=== PATIENT | female | born 1950 | race Caucasian/White ===

== ENCOUNTER 2016-10-15 15:22 | Emergency (ER) | payer OTHER ==
[~2016-10-15] VITALS: Ht 162.6 cm; Wt 65.0 kg
[~2016-10-15 15:22] MED LIST: ALBU8I INH; ASPI81 PO; DAPA5TAB PO; EFFE150C PO; GLIP10TA6 OR; HYDR-3533 PO; METF500 PO; METO50TA PO; OMEGCAP2 OR; PRAV20TA67 PO; PRED10PA PO; SERO400T OR; SYNT25TA PO; ZITHTAB6 PO
[2016-10-15 17:02] VITALS: BP 186/106; PULSE 58; RESP 16; TEMP 98.2; O2SAT 98
[2016-10-15] MEDS ORDERED: cloNIDine HCL 0.1 MG TAB PO ONE (17:30)
--- NOTE | 2016-10-15 17:32 | PD ---
HPI Chief Complaint: Medical Clearance Time Seen by Provider: 17:15 Travel History International Travel<30 days: No Contact w/Intl Traveler<30days: No Traveled to known affect area: No History of Present Illness HPI 66-year-old female was brought in by EMS for evaluation. Patient was reportedly driving erratically and was stopped by police and patient was brought in for evaluation. Patient denies any headache. Patient denies any visual change. Patient denies any neck pain. Patient denies any chest pain or shortness of breath. Patient denies abdominal pain. Patient denies any focal weakness or numbness of extremity. Patient denies any alcohol or drug abuse. Patient states that she is not on any narcotic pain medication. Patient has history hypertension and diabetes and has been taking her medications as directed. Patient also has history anxiety, asthma, GERD, hyperlipidemia, depression, thyroid disease. PFSH Past Medical History Asthma: Yes Blood Disorders: No Anxiety: Yes Depression: Yes High Cholesterol: Yes Diabetes: Yes Patient Takes Glucophage: Yes Diminished Hearing: No GERD: Yes Genitourinary: Yes Hypertension: Yes Immunizations Current: Yes Thyroid Disease: Yes Tetanus Vaccination: Unknown Influenza Vaccination: Yes Menopausal: Yes Tubal Ligation: Yes Past Surgical History Appendectomy: Yes Cholecystectomy: Yes Social History Alcohol Use: No Tobacco Use: No Substance Use: No Allergies-Medications (Allergen,Severity, Reaction): Coded Allergies: Vistaril (Verified Allergy, Severe, RAPID HEART RATE, 06/10/15) Sulfa (Verified Allergy, Mild, Nausea/Vomiting, 06/10/15) Codeine (Verified Adverse Reaction, Mild, Nausea/Vomiting, 06/10/15) Reported Meds & Prescriptions Reported Meds & Active Scripts Active Reported Aspir-81 (Aspirin) 81 Mg Tabdr 81 Mg PO DAILY Seroquel (Quetiapine Fumarate) 400 Mg Tab 400 Mg PO HS Effexor XR 24 HR (Venlafaxine HCl) 150 Mg Cap 150 Mg PO DAILY Voltaren (Diclofenac Sodium) 100 Gm Gel..gram. 1 Applic TOPICAL QID PRN Farxiga (Dapagliflozin) 5 Mg Tab 5 Mg PO DAILY Metformin (Metformin HCl) 1,000 Mg Tab 1,000 Mg PO BIDPC With meals Glipizide 10 Mg Tab 10 Mg PO BIDAC Take 30 minutes before a meal Levothyroxine (Levothyroxine Sodium) 125 Mcg Tab 125 Mcg PO DAILY Metoprolol Tartrate 50 Mg Tab 50 Mg PO BID Pravastatin 20 Mg Tab 20 Mg PO DAILY Baclofen 10 Mg Tab 10 Mg PO TID PRN Meloxicam 7.5 Mg Tab 7.5 Mg PO BID Ambien (Zolpidem Tartrate) 10 Mg Tab 10 Mg PO HS Review of Systems General / Constitutional: No: Fever Eyes: No: Visual changes HENT: No: Headaches Cardiovascular: No: Chest Pain or Discomfort Respiratory: No: Shortness of Breath Gastrointestinal: No: Abdominal Pain Genitourinary: No: Dysuria Musculoskeletal: No: Pain Skin: No Rash Neurologic: No: Weakness Psychiatric: No: Depression Endocrine: No: Polydipsia Hematologic/Lymphatic: No: Easy Bruising Physical Exam Narrative GENERAL: Well-nourished, well-developed patient. SKIN: Focused skin assessment warm/dry. HEAD: Normocephalic. EYES: No scleral icterus. No injection or drainage. NECK: Supple, trachea midline. No JVD or lymphadenopathy. CARDIOVASCULAR: Regular rate and rhythm without murmurs, gallops, or rubs. GENERAL: Well-nourished, well-developed patient. SKIN: Focused skin assessment warm/dry. HEAD: Normocephalic. EYES: No scleral icterus. No injection or drainage. Pupils 3 mm equal reactive. NECK: Supple, trachea midline. No JVD or lymphadenopathy. CARDIOVASCULAR: Regular rate and rhythm without murmurs, gallops, or rubs. RESPIRATORY: Breath sounds equal bilaterally. No accessory muscle use. GASTROINTESTINAL: Abdomen soft, non-tender, nondistended. MUSCULOSKELETAL: No cyanosis, or edema. BACK: Nontender without obvious deformity. No CVA tenderness. Neurologic exam: Patient's awake and alert oriented 3. Patient moves all extremity well. No obvious focal neurological deficit. Data Data Last Documented VS Vital Signs Date Time Temp Pulse Resp B/P Pulse Ox O2 Delivery O2 Flow Rate FiO2 10/15/16 18:30 57 18 172/94 100 Room Air 10/15/16 17:02 98.2 Orders Clonidine (Catapres) (10/15/16 17:30) Electrocardiogram (10/15/16 17:24) Complete Blood Count With Diff (10/15/16 17:24) Comprehensive Metabolic Panel (10/15/16 17:24) Urinalysis - C+S If Indicated (10/15/16 17:24) Chest, Single Ap (10/15/16 17:24) Iv Access Insert/Monitor (10/15/16 17:24) Ecg Monitoring (10/15/16 17:24) Oximetry (10/15/16 17:24) Thyroid Stimulating Hormone (10/15/16 17:29) Labs Laboratory Tests Test 10/15/16 10/15/16 18:00 18:05 White Blood Count 9.9 TH/MM3 Red Blood Count 4.39 MIL/MM3 Hemoglobin 12.7 GM/DL Hematocrit 39.1 % Mean Corpuscular Volume 89.1 FL Mean Corpuscular Hemoglobin 28.8 PG Mean Corpuscular Hemoglobin 32.4 % Concent Red Cell Distribution Width 14.5 % Platelet Count 164 TH/MM3 Mean Platelet Volume 8.8 FL Neutrophils (%) (Auto) 52.4 % Lymphocytes (%) (Auto) 24.3 % Monocytes (%) (Auto) 11.1 % Eosinophils (%) (Auto) 11.4 % Basophils (%) (Auto) 0.8 % Neutrophils # (Auto) 5.2 TH/MM3 Lymphocytes # (Auto) 2.4 TH/MM3 Monocytes # (Auto) 1.1 TH/MM3 Eosinophils # (Auto) 1.1 TH/MM3 Basophils # (Auto) 0.1 TH/MM3 CBC Comment DIFF FINAL Differential Comment Sodium Level 138 MEQ/L Potassium Level 3.9 MEQ/L Chloride Level 104 MEQ/L Carbon Dioxide Level 24.2 MEQ/L Anion Gap 10 MEQ/L Blood Urea Nitrogen 10 MG/DL Creatinine 0.50 MG/DL Estimat Glomerular Filtration 123 ML/MIN Rate Random Glucose 88 MG/DL Calcium Level 8.9 MG/DL Total Bilirubin 0.9 MG/DL Aspartate Amino Transf 37 U/L (AST/SGOT) Alanine Aminotransferase 38 U/L (ALT/SGPT) Alkaline Phosphatase 142 U/L Total Protein 7.5 GM/DL Albumin 3.8 GM/DL Thyroid Stimulating Hormone 0.018 uIU/ML 3rd Gen Urine Color YELLOW Urine Turbidity CLEAR Urine pH 7.0 Urine Specific [place] 1.019 Urine Protein NEG mg/dL Urine Glucose (UA) 70 mg/dL Urine Ketones NEG mg/dL Urine Occult Blood NEG Urine Nitrite NEG Urine Bilirubin NEG Urine Urobilinogen LESS THAN 2.0 MG/DL Urine Leukocyte Esterase NEG Urine Squamous Epithelial 1 /hpf Cells Urine Mucus FEW /lpf Microscopic Urinalysis Comment CULT NOT INDICATED MDM Medical Decision Making Medical Screen Exam Complete: Yes Emergency Medical Condition: Yes Interpretation(s) Last Impressions Chest X-Ray 10/15/16 1724 Signed Impressions: Service Date/Time: Tuesday, October 15, 2016 17:37 - CONCLUSION: No acute cardiopulmonary disease identified. Sreedhar Osorio MD 1945 PM. CBC within normal limit. CMP within normal limit. TSH 0.018. UA is negative. Differential Diagnosis Differential diagnosis including electrolyte abnormality, UTI, arrhythmia, TIA, CVA. Narrative Course 66-year-old female was brought in for evaluation After she was found driving erratically. Patient has no complaint now. Blood pressure is elevated. Clonidine 0.1 mg by mouth given. Diagnosis Primary Impression: Encounter for medical screening examination Patient Instructions: General Instructions Additional Instructions: Follow-up with personal physician. Return as needed. Med/Other Pt SpecificInfo: No Change to Meds Disposition: 01 DISCHARGE HOME Condition: Stable Nikolas Rich MD Oct 15, 2016 17:32
[2016-10-15] MEDS ORDERED: MELO7.5T4 PO (17:41)
[2016-10-15] MEDS ORDERED: PRAV20TA2 PO (17:41)
[2016-10-15] MEDS ORDERED: METO50TA PO (17:41)
[2016-10-15] MEDS ORDERED: METF1000 PO (17:41)
[2016-10-15] MEDS ORDERED: DAPA1TAB PO (17:41)
[2016-10-15] MEDS ORDERED: BACL10TA PO (17:41)
[2016-10-15] MEDS ORDERED: GLIP10TA6 PO (17:41)
[2016-10-15] MEDS ORDERED: LEVO125T4 PO (17:41)
[2016-10-15] MEDS ORDERED: AMBI10TA PO (17:41)
[2016-10-15] MEDS ORDERED: VOLT1GEL4 TOPICAL (17:51)
[2016-10-15] MEDS ORDERED: VOLT1GEL4 (17:51)
[2016-10-15] MEDS ORDERED: EFFE150C PO (17:52)
[2016-10-15] MEDS ORDERED: SERO400T PO (17:52)
[2016-10-15] MEDS ORDERED: ASPI81TA81 PO (17:54)
[2016-10-15 18:00] VITALS: RESP 16; O2SAT 98
--- NOTE | 2016-10-15 18:07 | RADRPT ---
EXAM DATE/TIME: 10/15/2016 17:37 [facility] COMPARISON: No previous studies available for comparison. INDICATIONS : Shortness of breath. MEDICAL HISTORY : Hypertension. SURGICAL HISTORY : None. ENCOUNTER: Initial ACUITY: 1 day PAIN SCORE: 0/10 LOCATION: Bilateral chest FINDINGS: Single AP view of the chest. The lungs are clear. Cardiomediastinal silhouette within normal limits. No evidence of pleural effusion or pneumothorax. CONCLUSION: No acute cardiopulmonary disease identified. Sreedhar Osorio MD on October 15, 2016 at 18:04 Board Certified Radiologist. This report was verified electronically.
[2016-10-15 18:30] VITALS: BP 172/94; PULSE 57; RESP 18; O2SAT 100
[2016-10-15 18:44] LABS: AUTOMATED NEUTROPHIL # 5.2 TH/MM3 (1.8-7.7); BASOPHIL # 0.1 TH/MM3 (0-0.2); BASOPHIL % 0.8 % (0.0-2.0); EOSINOPHIL # 1.1 TH/MM3 (0-0.4); EOSINOPHIL % 11.4 % (0.0-4.0); HEMATOCRIT 39.1 % (35.0-46.0); HEMO FLAGS DIFF FINAL; LYMPH % 24.3 % (9.0-44.0); LYMPHOCYTE # 2.4 TH/MM3 (1.0-4.8); MEAN CELL VOLUME 89.1 FL (80.0-100.0); MEAN CORPUSCULAR HEMOGLOBIN 28.8 PG (27.0-34.0); MEAN CORPUSCULAR HGB CONC 32.4 % (32.0-36.0); MONO % 11.1 % (0.0-8.0); NEUT % 52.4 % (16.0-70.0); PLATELET COUNT 164 TH/MM3 (150-450); RED BLOOD COUNT 4.39 MIL/MM3 (4.00-5.30); RED CELL DISTRIBUTION WIDTH 14.5 % (11.6-17.2); WHITE BLOOD COUNT 9.9 TH/MM3 (4.0-11.0)
[2016-10-15 19:03] LABS: BLOOD, URINE NEG (NEG); COMMENT (UR) CULT NOT INDICATED; CULTURE IF INDICATED CULT NOT INDICATED; GLUCOSE,URINE 70 mg/dL (NEG); KETONE, URINE NEG (NEG); MUCUS URINE FEW /lpf (OCC); NITRITE,URINE NEG (NEG); SQUAMOUS EPITHELIAL CELL URINE 1 /hpf (0-5); URINE COLOR YELLOW (YELLW/STRAW)
[2016-10-15 19:03] LABS: ANION GAP 10 MEQ/L (5-15); AST (GOT) 37 U/L (15-37); BICARBONATE 24.2 MEQ/L (21.0-32.0); BLOOD UREA NITROGEN 10 MG/DL (7-18); CHLORIDE 104 MEQ/L (98-107); GLOMERULAR FILTRATION RATE 123 ML/MIN (>89); POTASSIUM 3.9 MEQ/L (3.5-5.1); SODIUM (NA) 138 MEQ/L (136-145)
[2016-10-15 19:04] LABS: ALT (GPT) 38 U/L (10-53)
[2016-10-15 19:06] LABS: ALKALINE PHOSPHATASE 142 U/L (45-117); TOTAL BILIRUBIN ADULT 0.9 MG/DL (0.2-1.0)
--- NOTE | 2016-10-16 13:28 | EKG ---
Date Performed: 10/15/2016 Time Performed: 17:55:12 PTAGE: 66 years EKG: Sinus rhythm MINIMAL VOLTAGE CRITERIA FOR LVH, CONSIDER NORMAL VARIANT BORDERLINE ECG PREVIOUS TRACING : 03/12/2003 22.43 Compared to prior tracing no significant change DOCTOR: Joni Elam Interpretating Date/Time 10/16/2016 13:26:27
== END 2016-10-15 20:17 | disposition home or self-care (01) ==
LOC: NEPD 15:22
DX: Z04.8 Encounter for examination and observation for other specified reasons (principal); I10 Essential (primary) hypertension; R94.31 Abnormal electrocardiogram [ECG] [EKG]
CPT/HCPCS: 71010; 80053; 81001; 84443; 85025; 93005; 99285